=== PATIENT | female | born 1995 | race Caucasian/White ===

== ENCOUNTER → 2022-04-22 14:02 | Outpatient (CLI) | payer BC, SELFPAY ==
--- NOTE | ~2022-04-22 | MR_ITS ---
MRI of the lumbar spine Clinical History: Radiculopathy Technique: Axial T2-weighted images, and sagittal T1-weighted, T2-weighted, and T2 fat-sat images wer e acquired. Findings: There are apparently 6 lumbar type vertebral bodies. There is no fracture or subluxation of the lumbar spine. Vertebral bodies maintain normal height and alignment. No bone marrow signal abnor mality seen. At L1-L2, L2-L3,, L3-L4, and L4-L5, there is no disc bulge or herniation. No spinal canal stenosis or neural foraminal narrowing at these levels. At L5-L6, there is minimal disc bulge and mild facet joint degenerative change. No spinal canal steno sis. There is moderate bilateral neural foraminal narrowing. At L6-S1, there is no disc bulge or herniation. There is no spinal canal stenosis or definite neural foraminal narrowing. Impression: Minimal degenerative spondylosis, as detailed above. Reviewed, dictated and finalized at [facility]. [employer] Impression: Minimal degenerative spondylosis, as detailed above.
== END ==
DX: M47.26 Other spondylosis with radiculopathy, lumbar region (principal)
CPT/HCPCS: 72148

== ENCOUNTER 2022-09-23 02:04 | Day surgery (SDC) | payer BC, SELFPAY ==
[2022-09-13 16:10] VITALS: BMI 30.7
[2022-09-23 09:23] VITALS: BP 127/71; PULSE 63; RESP 20; TEMP 37.4; O2SAT 100
[2022-09-23] MEDS: LACTATED RINGERS 1,000 ML 150 ML IV CONT (09:36)
--- NOTE | 2022-09-23 09:58 | PM.HPGS ---
History of Present Illness History of Present Illness Consent: Risks, benefits, and alternatives have been discussed and questions answered. Patient agrees to proceed with procedure. Chief complaint: GERD, IBS-d Narrative: Jodi Shelby is a 26 year old female with gerd, nausea and regurgitation, bloating after eating. Had cholecystectomy, also inconsistent bowel movements, never had scopes. History of psoriasis on tremfya Review of Systems Constitutional: Constitutional: Denies headache(s) and Denies weakness Eyes: Eyes: Denies blurry vision ENT: Reports Normal hearing present, Denies headache(s) and Denies neck pain Cardiovascular: Cardiovascular: Denies chest pain and Denies dyspnea Respiratory: Respiratory: Denies dyspnea Gastrointestinal: Gastrointestinal: Reports no additional gastrointestinal complaints Genitourinary: Genitourinary: Denies dysuria Musculoskeletal: Musculoskeletal: Denies neck pain Integumentary/Breasts: Skin/Breast: Denies dry skin Neurologic: Reports Normal hearing present, Denies headache(s) and Denies weakness Psychiatric: Psychiatric: Denies anxiety Endocrine: Endocrine: Denies change in body appearance Hematologic/Lymphatic: Hematologic/Lymphatic: Denies easy bleeding Allergic/Immunologic: Allergic/Immunologic: Denies urticaria PMFSH Past Medical History Medical History (Updated 09/23/22 @ 09:59 by Alberto Sarmiento MD) Bloating GERD (gastroesophageal reflux disease) Loose stools Social History Social History Alcohol intake: current Drinks per week: 4 Substance use: former Other substance usage details: Medical marijuana in past Living arrangements: with family Spiritual care concerns: No Meds Home Medications and Allergies Home Medications Medication Instructions Recorded Confirmed Type guselkumab 100 mg/mL subcutaneous See Rx Instructions .Route .COMPLEX 09/13/22 09/13/22 History syringe (Tremfya) multivitamin 1 tablet PO DAILY 09/13/22 09/13/22 History Allergies Allergy/AdvReac Type Severity Reaction Status Date / Time No Known Allergies Allergy Verified 09/23/22 09:22 Vital Signs Vital Signs - 24 hr 09/23/22 09:23 Temperature 99.4 F Pulse Rate 63 Respiratory Rate 20 Blood Pressure 127/71 Pulse Oximetry 100 Oxygen Delivery Room Air Exam Const: General: comfortable and no acute distress HENMT: Face/Nose/Sinus: Normal nares present Eyes: General: appearance normal, both eyes and all related structures Neck: Neck: no JVD Resp: Auscultation: clear to auscultation bilaterally Cardio: Rate: regular rate Rhythm: regular rhythm GI: Inspection: non-distended GI Palp: Yes Soft to palpation Skin: General skin exam: normal color Neuro: General: gait normal Speech: normal speech Extrem: General: normal to inspection Psych: Mental Status: mental status grossly normal Assessment and Plan Assessment and plan (1) GERD (gastroesophageal reflux disease): Code(s): K21.9 - Gastro-esophageal reflux disease without esophagitis Status: Acute Assessment and Plan: egd with bx (2) Bloating: Code(s): R14.0 - Abdominal distension (gaseous) Status: Acute (3) Loose stools: Code(s): R19.5 - Other fecal abnormalities Status: Acute Assessment and Plan: colonoscopy
--- NOTE | 2022-09-23 09:59 | P.PNAN_ITS ---
Anes - Initial Pre Proc Eval Procedure: Operation Date: 09/23/22 10:30 Proposed Procedures p Esophagogastroduodenoscopy & Colonoscopy - Alberto Sarmiento MD Date/Time: 09/23/22 09:59 Surgeon: Alberto Sarmiento MD Pre Op Diagnosis: GERD, IBS-d Patient Data Age: 26 Gender: F Height: 1.8 m Weight: 99.4 kg Last Vital Signs Temp 99.4 F 09/23/22 09:23 Pulse 63 09/23/22 09:23 Resp 20 09/23/22 09:23 BP 127/71 09/23/22 09:23 Pulse Ox 100 09/23/22 09:23 O2 Del Method Room Air 09/23/22 09:23 Allergies Allergy/AdvReac Type Severity Reaction Status Date / Time No Known Allergies Allergy Verified 09/23/22 09:22 Home Medications Medication Instructions Recorded Confirmed Type guselkumab 100 mg/mL subcutaneous See Rx Instructions .Route .COMPLEX 09/13/22 09/13/22 History syringe (Tremfya) multivitamin 1 tablet PO DAILY 09/13/22 09/13/22 History Patient hx anesthesia problems: none Family hx anesthesia problems: none Results Review: All pre-operative results and documents have been reviewed as part of the pre- operative evaluation. [facility] Past Medical History Medical History (Updated 09/23/22 @ 09:59 by Alberto Sarmiento MD) Bloating GERD (gastroesophageal reflux disease) Loose stools Social History Social History Alcohol intake: current Drinks per week: 4 Substance use: former Other substance usage details: Medical marijuana in past Living arrangements: with family Spiritual care concerns: No Anes - Eval Final PreProcedure Day of Procedure 09/23/22 09:59 Patient weight: obese Heart: regular rate and rhythm Lungs: clear to auscultation Airway: Mallampati scale class II Neurological: alert and oriented Last oral intake: >/= 8 hours ASA classification: II Emergent: no Anesthetic plan: proceed Anesthesia type and monitoring: general GIVS and standard monitoring Results Review: All pre-operative results and documents have been reviewed as part of the pre- operative evaluation. Informed Consent: The patient's anesthetic plan and its attendant risks and benefits were discussed with the patient/family/POA. Questions were solicited and answers provided to the satisfaction of the patient/family/POA.
[2022-09-23] MEDS: BENZOCAINE (*SP) 60 ML SPRAY CAN (HURRICAINE) 1 SPRAY MUCOUS MEM (10:09)
--- NOTE | 2022-09-23 10:25 | SUR.OPER ---
EGD completed at 1015, colonoscopy started at 1019
[2022-09-23 10:33] VITALS: BP 108/64; PULSE 66; RESP 18; O2SAT 98
[2022-09-23 10:43] VITALS: BP 109/71; PULSE 68; RESP 16; O2SAT 98
[2022-09-23 10:53] VITALS: BP 112/73; PULSE 58; RESP 16; O2SAT 100
== END 2022-09-23 11:07 | disposition home or self-care (01) ==
PROVIDERS: PCP Emergency Medicine; Visit Provider Internal Medicine Gastroenterology
PROC: 0DJ08ZZ Inspection of Upper Intestinal Tract, Via Natural or Artificial Opening Endoscopic (ICD-10-PCS; CPT 43235; principal; 2022-09-23 10:30)
DX: R19.5 Other fecal abnormalities (principal); D12.3 Benign neoplasm of transverse colon; K64.8 Other hemorrhoids; K25.9 Gastric ulcer, unspecified as acute or chronic, without hemorrhage or perforation; K29.70 Gastritis, unspecified, without bleeding; K21.9 Gastro-esophageal reflux disease without esophagitis; E66.9 Obesity, unspecified; Z68.30 Body mass index [BMI] 30.0-30.9, adult
CPT/HCPCS: 45385; 43239; 87081; 88305; J2001; J2704; J7120

== ENCOUNTER 2023-10-13 00:21 | Day surgery (SDC) | payer BC, SELFPAY ==
--- NOTE | 2023-10-09 10:08 | SUR.PREOP ---
Report to the Outpatient Waiting Room, entrance under the green pavilion located off [facility], at time _1000_ on date _10/13/23_. Planned Procedure Time: _1200__. Time changes happen often and if your time is changed the preop area will call you the afternoon before. - You and your visitor will be asked to self-screen and do not enter if you have any COVID symptoms. - A mask is optional within the hospital at this time. Patients may have clear liquids (water, carbonated beverages, clear teas, apple juice) until 3 hours prior to surgery with a maximum of 20 ounces. - No food from midnight until time of surgery - Infants may have breast milk until 4 hours before surgery, infant formula 6 hours prior to surgery. - Children will be allowed to drink immediately following surgery. If applicable, please bring a bottle or sippy cup to assist with drinking. Juice, water, soda, and popsicles are readily available. For infants on formula, please bring formula the day of surgery. Pacifiers are allowed. Take the following medications with a SIP of water the morning of surgery: __NA__ DO NOT STOP ANY OF YOUR OTHER PRESCRIPTION MEDICATIONS PRIOR TO SURGERY ?EXCEPT THE FOLLOWING Medications to discontinue per physician ____multivitamin Date to take last dose__10/10/23___ Please no make-up, nail belarusian, hairspray, perfume, deodorant, or body powder the day of surgery. No jewelry (including any body piercings) or valuables the day of surgery, leave them at home. Please take a shower or bath the night before, or the morning of, surgery with an antibacterial soap. Wear comfortable, loose fitting clothing. Children are encouraged to wear pajamas. - Jewelry must be removed prior to entering the operating room. Rings and piercings that are not removed may be cut off. - The hospital will not accept responsibility for valuables. - Please leave all valuables, including medications, at home the day of surgery. If you are going home after surgery, a licensed recycling collections driver must drive you home. - NO public transportation without another adult if you receive anesthesia. - We recommend that an adult stay with you for 24 hours following discharge. - We also recommend that you do not drive, make important decision, drink alcoholic beverages, or take any drugs that were not prescribed by your health care provider for at least 24 hours after your discharge time. For Pediatric surgeries, we recommend two adults accompany the child home. Follow any additional instructions given to you from your surgeon. If you or anyone in your household have experienced Covid symptoms in the past week, please notify your surgeon or the nurse liaison at the phone number below for possible testing. Telephone instructions given to __Jodi__and asked if any additional questions and then verbalized understanding. Patient advised to call surgeon office or pre surgery nurse liaison [phone] if any additional questions.
[2023-10-09 10:31] VITALS: BMI 30.7
[2023-10-13 10:32] VITALS: BP 119/94; PULSE 97; RESP 20; TEMP 37.1; O2SAT 98
[2023-10-13] MEDS: LACTATED RINGERS 1,000 ML 30 ML IV CONT (11:20)
--- NOTE | 2023-10-13 11:43 | WPDANESEPPF ---
Anes - Initial Pre Proc Eval Procedure: Operation Date: 10/13/23 12:00 Proposed Procedures p Excision Left Shoulder Mass, Excision of Right Parietal Scalp Cyst - Dewey Richardson DO Date/Time: 10/13/23 11:43 Surgeon: Dewey Richardson DO Pre Op Diagnosis: Lt Shoulder Mass (4cm), Rt.parietal scalp cyst(5mm Patient Data Age: 27 Gender: F Height: 1.8 m Weight: 102.6 kg Last Vital Signs Temp 37.1 C 10/13/23 10:32 Pulse 97 10/13/23 10:32 Resp 20 10/13/23 10:32 BP 119/94 H 10/13/23 10:32 Pulse Ox 98 10/13/23 10:32 O2 Del Method Room Air 10/13/23 10:32 Allergies Allergy/AdvReac Type Severity Reaction Status Date / Time No Known Allergies Allergy Verified 10/13/23 10:51 Home Medications Medication Instructions Recorded Confirmed Type multivitamin 1 tablet PO DAILY 09/13/22 10/13/23 History omeprazole 40 mg capsule,delayed See Rx Instructions .Route 08/17/23 10/13/23 Rx release .COMPLEX #90 caps Kyleena 10/09/23 History guselkumab 100 mg/mL subcutaneous See Rx Instructions .Route .COMPLEX 10/09/23 10/09/23 History auto-injector (Tremfya) phentermine 37.5 mg tablet 37.5 mg DAILY 10/09/23 10/13/23 History Patient hx anesthesia problems: none Family hx anesthesia problems: none Results Review: All pre-operative results and documents have been reviewed as part of the pre-operative evaluation. [facility] Past Medical History Medical History Arthritis with psoriasis Bloating Chronic back pain Gastric ulcer GERD (gastroesophageal reflux disease) Loose stools Social History Social History (Updated 10/13/23 @ 11:47 by Jose Stewart DO) Smoking status: Never smoker Second hand tobacco smoke exposure: No Alcohol intake: current Drinks per week: 3 Alcohol use details: 2 drinks/day Substance use: former Substance use type: marijuana Other substance usage details: medical marijuana Last use: 2020 Living arrangements: with family Additional living arrangements comments: with Spiritual care concerns: No Anes - Eval Final PreProcedure Day of Procedure 10/13/23 11:43 Patient weight: obese Heart: regular rate and rhythm Lungs: clear to auscultation Airway: Mallampati scale class II Neurological: alert and oriented Last oral intake: >/= 8 hours ASA classification: III Emergent: no Anesthetic plan: proceed Anesthesia type and monitoring: general GIVS and standard monitoring Results Review: All pre-operative results and documents have been reviewed as part of the pre-operative evaluation. Informed Consent: The patient's anesthetic plan and its attendant risks and benefits were discussed with the patient/family/POA. Questions were solicited and answers provided to the satisfaction of the patient/family/POA.
--- NOTE | 2023-10-13 11:47 | PM.IMHP ---
H&P: HPI History of Present Illness Date/Time: 10/13/23 11:47 Chief Complaint: left shoulder mass, scalp cyst Narrative: 27 yo woman presents for excision of left shoulder mass and scalp cyst. She reports no changes since seen in office. Review of Systems Review of Systems: All systems reviewed & are unremarkable except as noted in HPI and below Constitutional: Constitutional: Denies chills, Denies fever(s), Denies headache(s) and Denies weight loss Eyes: Eyes: Denies change in vision ENT: Denies dizziness, Denies headache(s), Denies neck mass and Denies throat swelling Cardiovascular: Cardiovascular: Denies chest pain, Denies lightheadedness and Denies dyspnea Respiratory: Respiratory: Denies cough, Denies dyspnea and Denies wheezing Gastrointestinal: Gastrointestinal: Denies abdominal pain, Denies change in bowel habits, Denies nausea and Denies vomiting Genitourinary: Genitourinary: Denies hematuria and Denies dysuria Musculoskeletal: Musculoskeletal: Reports as per HPI Integumentary/Breasts: Skin/Breast: Reports as per HPI Neurologic: Denies dizziness and Denies headache(s) Allergic/Immunologic: Allergic/Immunologic: Denies throat swelling and Denies wheezing PMFSH Past Medical History Medical History Arthritis with psoriasis Bloating Chronic back pain Gastric ulcer GERD (gastroesophageal reflux disease) Loose stools Social History Social History (Updated 10/13/23 @ 11:47 by Jose Stewart DO) Smoking status: Never smoker Second hand tobacco smoke exposure: No Alcohol intake: current Drinks per week: 3 Alcohol use details: 2 drinks/day Substance use: former Substance use type: marijuana Other substance usage details: medical marijuana Last use: 2020 Living arrangements: with family Additional living arrangements comments: with Spiritual care concerns: No Meds Home Medications and Allergies Home Medications Medication Instructions Recorded Confirmed Type multivitamin 1 tablet PO DAILY 09/13/22 10/13/23 History omeprazole 40 mg capsule,delayed See Rx Instructions .Route 08/17/23 10/13/23 Rx release .COMPLEX #90 caps Kyleena 10/09/23 History guselkumab 100 mg/mL subcutaneous See Rx Instructions .Route .COMPLEX 10/09/23 10/09/23 History auto-injector (Tremfya) phentermine 37.5 mg tablet 37.5 mg DAILY 10/09/23 10/13/23 History Allergies Allergy/AdvReac Type Severity Reaction Status Date / Time No Known Allergies Allergy Verified 10/13/23 10:51 Vital Signs Vital Signs - 24 hr 10/13/23 10:32 Temperature 37.1 C Pulse Rate 97 Respiratory Rate 20 Blood Pressure 119/94 H Pulse Oximetry 98 Oxygen Delivery Room Air Exam Const: General: no acute distress and alert Orientation/consciousness: patient oriented x3 HENMT: Head: normocephalic and atraumatic Ears: hearing grossly normal bilaterally Face/Nose/Sinus: Normal nares present Mouth: Yes Normal oral and palatal mucosa present Eyes: Periorbital: periorbital findings normal Sclera: sclerae normal EOM: EOMs intact bilaterally Neck: Neck: normal visual inspection, no lymphadenopathy and trachea midline Chest: Chest palpation & inspection: normal inspection of the chest Resp: Effort & Inspection: normal respiratory effort Auscultation: clear to auscultation bilaterally Cardio: Jugular venous distension: no JVD Rate: regular rate Rhythm: regular rhythm Heart sounds: S1 normal heart sound present and S2 normal heart sound present Peripheral pulses: Peripheral pulses 2+ throughout GI: Inspection: normal to inspection GI Palp: Yes Soft to palpation, No Tenderness to palpation present (GI), No Guarding due to palpation present (GI) and No Rebound tenderness present Percussion: Yes normal to percussion Auscultation: normal bowel sounds : General: Yes no CVA tenderness Back/Spine/Pelvis: Back: no CVA tend
--- NOTE | 2023-10-13 11:56 | WPDHPUPDATE1 ---
History and Physical Update Update Date/Time: 10/13/23 11:56 History and Physical has been reviewed, including an updated exam of the patient. There are NO changes in the patient's condition. Risks, benefits, and alternatives have been discussed and questions answered. Patient agrees to proceed with procedure.
[2023-10-13] MEDS: ceFAZolin 2 GM/D5W 50 ML 2 GM/50 ML BAG IVPB (12:03)
[2023-10-13] MEDS: LIDO 1%/EPINEPHRINE 1:100,000 20 ML VIAL INFILTRATE (12:28)
[2023-10-13] MEDS: BACITRACIN OINTMENT 15 GM TUBE 1 APPLIC TOPICAL (12:37)
[2023-10-13 12:49] VITALS: BP 115/53; PULSE 106; RESP 16; O2SAT 100
--- NOTE | 2023-10-13 12:49 | P.OP_ITS ---
Procedure Note - Detailed Date of Procedure 10/13/23 Pre-op Diagnosis Lt Shoulder Mass (4cm), Rt parietal scalp cyst(5mm) Post-op Diagnosis Same Procedure Performed 1. Excision 4 cm left shoulder lipoma 2. Excision 0.5 cm right scalp cyst Surgeon Dewey Richardson, DO Anesthesia MAC (with LMA) and Local (1% Lidocaine with epinephrine) Indications This is a 27-year-old woman who presented with a left shoulder mass and a scalp cyst. She had noticed the mass in her left shoulder several months ago. It has grown in size slightly since noticing it. She has some mild discomfort when it is pressed on. She had the scalp cyst for several months as well and it is small. She denies any prior drainage. She was found to have a left shoulder mass with consistency of a lipoma and a scalp cyst. Discussions were made with the patient about treatment options and decision was made to proceed with excision of 4 cm left shoulder mass and excision of 0.5 cm right parietal scalp cyst. Findings The left shoulder mass was completely excised. This appeared to have the consistency of a lipoma. No other underlying masses were identified. The lipoma was completely excised and sent to the lab for pathology. On the patient's scalp she was found to have a 0.5 cm scalp cyst. This appeared to be consistent with a Pilar cyst. It was completely excised and sent to the lab for pathology. Description of Procedure Procedure as well as risks, benefits, and alternatives were discussed with the patient. Written consent was obtained and placed in chart prior to procedure. Patient was brought back to surgical suite. She was placed supine on operating table. Time-out was done to confirm patient and procedure. IV sedation was administered by the Anesthesia Department and LMA was placed. Her right scalp area was prepped and draped in sterile fashion using Betadine prep and her left shoulder mass was prepped and draped in sterile fashion using chlorhexidine prep. 1% lidocaine with epinephrine was infiltrated locally around each of the areas. The left shoulder mass was excised initially. A 4 cm incision was made directly over the mass using a 15 blade scalpel. Electrocautery was used for hemostasis and for dissection through the subcutaneous tissue until the mass was encountered. The surrounding subcutaneous attachments were then carefully freed up using electrocautery. The mass was completely excised intact and sent to the lab for pathology. The wound bed was then inspected hemostasis appeared adequate no other abnormalities were noted. The skin edges were then reapproximated using 4-0 Monocryl running subcuticular suture. Exofin glue was then applied on top. I then excised the scalp cyst. A 1 cm incision was made directly over the scalp cyst using a 15 blade scalpel. A curved hemostat was then used to carefully bluntly dissect under the skin incision to identify the cyst. The cyst was identified carefully freed up from the surrounding attachments using blunt dissection. The cyst was completely excised and sent to the lab for pathology. Hemostasis appeared adequate no other abnormalities were noted. The skin edges were then reapproximated using 4-0 Prolene simple interr upted sutures. A total of 3 sutures were placed to approximate the skin edges. Bacitracin ointment was then applied. The patient was then awakened from anesthesia and transferred to recovery. Estimated Blood Loss 5 Pathology Yes (4 cm left shoulder mass and 0.5 cm right scalp cyst) Complications No immediate complications Condition Stable Disposition Same day [facility] Billing Surgery - Charge Forward: Surgery Billing
[2023-10-13 13:20] VITALS: BP 114/71; PULSE 94; RESP 16
[2023-10-13 13:50] VITALS: BP 123/68; PULSE 81; RESP 16
== END 2023-10-13 14:01 | disposition home or self-care (01) ==
PROVIDERS: PCP Emergency Medicine; Visit Provider Surgery
PROC: (CPT 11420; principal; 2023-10-13 12:00)
DX: D17.22 Benign lipomatous neoplasm of skin and subcutaneous tissue of left arm (principal); L72.11 Pilar cyst; K21.9 Gastro-esophageal reflux disease without esophagitis; M54.9 Dorsalgia, unspecified; G89.29 Other chronic pain; L40.9 Psoriasis, unspecified
CPT/HCPCS: 11420; 11404; 88304; 88305; A9270; J0690; J1100; J2250; J2405; J2704; J3010; J7120